=== PATIENT | male | born 1990 | race Caucasian/White ===

== ENCOUNTER 2017-09-13 20:05 | Inpatient (IN) | payer OTHER ==
[~2017-09-13] VITALS: Ht 182.9 cm; Wt 83.5 kg
[2017-09-13] MEDS ORDERED: ONDANSETRON 2MG/ML, 2ML IVPush ONE (20:30)
[2017-09-13] MEDS ORDERED: SODIUM CHLORIDE FLUSH 10ML SYR IVF ONE (20:30)
[2017-09-13] MEDS ORDERED: ONDANSETRON 2MG/ML, 2ML ONE (20:34)
[2017-09-13] MEDS ORDERED: MORPHINE SULFATE 4 MG/ML, 1ML ONE ×2 (20:35→21:16)
[2017-09-13 20:44] LABS: MEAN CORPUSCULAR HEMOGLOBIN 32.8 pg (27.5-34.5); MEAN CORPUSCULAR HGB CONC 34.5 g/dL (33.2-36.2); MEAN CORPUSCULAR VOLUME 95.1 fL (81-97); MEAN PLATELET VOLUME 9.1 fL (7.4-10.4); PLATELET COUNT 257 x10^3/uL (130-400); RED BLOOD COUNT 5.11 x10^6/uL (4.38-5.82); RED CELL DISTRIBUTION WIDTH 12.8 % (9.4-14.8)
[2017-09-13] MEDS: MORPHINE SULFATE 4 MG/ML, 1ML IVPush PRN ×2 (20:47→21:25)
[2017-09-13 20:52] LABS: ALBUMIN 4.3 g/dL (3.4-5.0); ANION GAP 6 mmol/L (5-15); CALCIUM 9.1 mg/dL (8.5-10.1); CHLORIDE 103 mmol/L (98-107); CREATININE 0.93 mg/dL (0.7-1.3)
[2017-09-13 21:03] LABS: BASOPHILS # (AUTO) 0.09 x10^3/uL (0-0.1); BASOPHILS % (AUTO) 1 % (0-1); EOSINOPHILS # (AUTO) 0.16 x10^3/uL (0-0.4); EOSINOPHILS % (AUTO) 1 % (1-7); LYMPHOCYTES % (AUTO) 16 % (22-44); MD SCAN; MONOCYTES % (AUTO) 5 % (2-9); NEUTROPHILS # (AUTO) 14.55 x10^3/uL (1.8-6.8); NEUTROPHILS % (AUTO) 77 % (42-75)
[2017-09-13] MEDS ORDERED: PANTOPRAZOLE 80 MG in SODIUM CHLORIDE 0.9% 50 ML IVPB ONE (21:09)
[2017-09-13] MEDS ORDERED: PANTOPRAZOLE 40 MG IV ONE (21:19)
[2017-09-13] MEDS ORDERED: OMNIPAQUE 350 MG/ML, 150 ML BOTTLE ONE (21:45)
[2017-09-13] MEDS ORDERED: HYDROmorphone 2 MG/ML, 1ML ONE (22:13)
[2017-09-13] MEDS ORDERED: OMNIPAQUE 350 MG/ML, 75ML BOTTLE ONE (22:16)
[2017-09-13] MEDS ORDERED: HYDROmorphone 2 MG/ML, 1ML IVPush ONE (22:30)
[2017-09-14] VITALS: BP 124/76
[2017-09-14] MEDS ORDERED: BISACODYL 10 MG SUPP PR PRN
[2017-09-14] MEDS ORDERED: PROMETHAZINE 25 MG/ML, 1ML IM PRN
[2017-09-14] MEDS ORDERED: ENALAPRILAT 1.25 MG/ML, 2ML IVPush PRN
[2017-09-14] MEDS ORDERED: hydrALAzine 20 MG/ML, 1ML IVPush PRN
[2017-09-14] MEDS ORDERED: LABETALOL 5MG/ML, 20ML IVPush PRN
[2017-09-14] MEDS: morphine SULFATE 10 MG/ML, 1ML IVPush PRN ×8 (00:35→22:37)
[2017-09-14] MEDS: ERTAPENEM 1 GM in SODIUM CHLORIDE 0.9% 50 ML IV SCH ×2 (00:37→01:39)
[2017-09-14 00:42] LABS: HEMOGLOBIN A1C 5.3 % (4.2-6.3)
[2017-09-14 00:45] LABS: FREE T4 (FREE THYROXINE) 0.98 ng/dL (0.76-1.46); THYROID STIMULATING HORMONE 1.48 mIU/L (0.358-3.740)
[2017-09-14] MEDS: D5%-0.9% NACL+KCL 20MEQ 1,000 ML IV SCH ×2 (01:39→09:05)
[2017-09-14 01:46] LABS: MEAN CORPUSCULAR HEMOGLOBIN 33.1 pg (27.5-34.5); MEAN CORPUSCULAR HGB CONC 35.2 g/dL (33.2-36.2); MEAN PLATELET VOLUME 9.1 fL (7.4-10.4); PLATELET COUNT 249 x10^3/uL (130-400); RED BLOOD COUNT 4.75 x10^6/uL (4.38-5.82); RED CELL DISTRIBUTION WIDTH 12.7 % (9.4-14.8)
[2017-09-14 01:54] LABS: ALANINE AMINOTRANSFERASE 28 U/L (12-78); ANION GAP 8 mmol/L (5-15); CALCIUM 8.7 mg/dL (8.5-10.1); CHLORIDE 105 mmol/L (98-107); CHOLESTEROL, TOTAL 195 mg/dL (140-239); CREATININE 0.78 mg/dL (0.7-1.3)
[2017-09-14 01:56] LABS: ALKALINE PHOSPHATASE 55 U/L (45-117); BILIRUBIN,TOTAL 1.9 mg/dL (0.2-1.0); CHOL/HDL RATIO 4.2; HDL CHOL % 24 % (26-37); HDL CHOLESTEROL (DIRECT) 46 mg/dL (40-60); LDL CHOLESTEROL,CALCULATED 133 mg/dL (54-169); LDL/HDL RATIO 2.9 (0.5-3.0); TOTAL PROTEIN 7.2 g/dL (6.4-8.2); TRIGLYCERIDES 82 mg/dL (50-200); VLDL CHOLESTEROL 16 mg/dL (0-25)
[2017-09-14] MEDS: PANTOPRAZOLE 80 MG in SODIUM CHLORIDE 0.9% 100 ML IV SCH ×3 (02:04→20:33)
[2017-09-14 02:40] LABS: BASOPHILS # (AUTO) 0.05 x10^3/uL (0-0.1); BASOPHILS % (AUTO) 0 % (0-1); EOSINOPHILS # (AUTO) 0.01 x10^3/uL (0-0.4); EOSINOPHILS % (AUTO) 0 % (1-7); LYMPHOCYTES # (AUTO) 1.53 x10^3/uL (1-3.4); LYMPHOCYTES % (AUTO) 7 % (22-44); MD SCAN; MONOCYTES # (AUTO) 1.13 x10^3/uL (0.2-0.8); MONOCYTES % (AUTO) 5 % (2-9); NEUTROPHILS # (AUTO) 18.37 x10^3/uL (1.8-6.8); NEUTROPHILS % (AUTO) 87 % (42-75)
[2017-09-14 05:11] VITALS: BP 111/64
[2017-09-14 05:49] LABS: MICROSCOPIC NOT IND
[2017-09-14 05:50] LABS: CULTURE INDICATED? NO
[2017-09-14 07:05] VITALS: BP 105/66
[2017-09-14] MEDS: ONDANSETRON 2MG/ML, 2ML IVPush PRN ×3 (08:28→20:33)
[2017-09-14 13:54] VITALS: BP 140/76
[2017-09-14 19:05] VITALS: BP 121/71
[2017-09-15] MEDS: ERTAPENEM 1 GM in SODIUM CHLORIDE 0.9% 50 ML IV SCH (01:11)
[2017-09-15] MEDS: morphine SULFATE 10 MG/ML, 1ML IVPush PRN ×6 (01:11→19:58)
[2017-09-15 02:22] VITALS: BP 122/76
[2017-09-15] MEDS: PANTOPRAZOLE 80 MG in SODIUM CHLORIDE 0.9% 100 ML IV SCH ×2 (06:23→17:36)
[2017-09-15 07:37] VITALS: BP 119/77
[2017-09-15] MEDS ORDERED: MORPHINE SULFATE 4 MG/ML, 1ML ONE ×3 (08:14→14:48)
[2017-09-15] MEDS: ONDANSETRON 2MG/ML, 2ML IVPush PRN (08:16)
[2017-09-15 08:23] LABS: ALANINE AMINOTRANSFERASE 20 U/L (12-78); ALBUMIN 3.7 g/dL (3.4-5.0); ANION GAP 8 mmol/L (5-15); CALCIUM 9.1 mg/dL (8.5-10.1); CHLORIDE 103 mmol/L (98-107); CREATININE 0.97 mg/dL (0.7-1.3)
[2017-09-15 08:25] LABS: ALKALINE PHOSPHATASE 50 U/L (45-117); BILIRUBIN,TOTAL 2.1 mg/dL (0.2-1.0); TOTAL PROTEIN 7.6 g/dL (6.4-8.2)
[2017-09-15 08:40] LABS: BASOPHILS # (AUTO) 0.23 x10^3/uL (0-0.1); BASOPHILS % (AUTO) 2 % (0-1); EOSINOPHILS # (AUTO) 0.24 x10^3/uL (0-0.4); EOSINOPHILS % (AUTO) 2 % (1-7); LYMPHOCYTES # (AUTO) 3.02 x10^3/uL (1-3.4); LYMPHOCYTES % (AUTO) 20 % (22-44); MD NO; MEAN CORPUSCULAR VOLUME 94.3 fL (81-97); MEAN PLATELET VOLUME 8.9 fL (7.4-10.4); MONOCYTES # (AUTO) 1.41 x10^3/uL (0.2-0.8); MONOCYTES % (AUTO) 9 % (2-9); NEUTROPHILS # (AUTO) 10.35 x10^3/uL (1.8-6.8); NEUTROPHILS % (AUTO) 68 % (42-75); PLATELET COUNT 226 x10^3/uL (130-400); RED BLOOD COUNT 4.82 x10^6/uL (4.38-5.82); RED CELL DISTRIBUTION WIDTH 12.6 % (9.4-14.8)
[2017-09-15 13:28] VITALS: BP 128/84
[2017-09-15] MEDS: HYDROcodone/APAP 7.5-325MG/15ML UDC PO PRN ×2 (17:36→21:56)
[2017-09-15 21:52] VITALS: BP 115/74
[2017-09-16] MEDS: ERTAPENEM 1 GM in SODIUM CHLORIDE 0.9% 50 ML IV SCH (01:31)
[2017-09-16] MEDS: morphine SULFATE 10 MG/ML, 1ML IVPush PRN ×2 (01:41→07:52)
[2017-09-16 02:16] VITALS: BP 124/76
[2017-09-16] MEDS: PANTOPRAZOLE 80 MG in SODIUM CHLORIDE 0.9% 100 ML IV SCH (04:29)
[2017-09-16] MEDS: HYDROcodone/APAP 7.5-325MG/15ML UDC PO PRN ×2 (04:34→11:23)
[2017-09-16 06:00] LABS: ANION GAP 9 mmol/L (5-15); CALCIUM 8.7 mg/dL (8.5-10.1); CHLORIDE 101 mmol/L (98-107)
[2017-09-16 06:02] LABS: CREATININE 0.94 mg/dL (0.7-1.3)
[2017-09-16 06:03] LABS: BASOPHILS # (AUTO) 0.11 x10^3/uL (0-0.1); BASOPHILS % (AUTO) 1 % (0-1); EOSINOPHILS # (AUTO) 0.63 x10^3/uL (0-0.4); EOSINOPHILS % (AUTO) 6 % (1-7); LYMPHOCYTES # (AUTO) 3.33 x10^3/uL (1-3.4); LYMPHOCYTES % (AUTO) 31 % (22-44); MD NO; MEAN CORPUSCULAR HEMOGLOBIN 32.9 pg (27.5-34.5); MEAN CORPUSCULAR HGB CONC 34.8 g/dL (33.2-36.2); MEAN CORPUSCULAR VOLUME 94.7 fL (81-97); MONOCYTES # (AUTO) 1.22 x10^3/uL (0.2-0.8); MONOCYTES % (AUTO) 11 % (2-9); NEUTROPHILS # (AUTO) 5.62 x10^3/uL (1.8-6.8); NEUTROPHILS % (AUTO) 52 % (42-75); PLATELET COUNT 226 x10^3/uL (130-400); RED BLOOD COUNT 4.53 x10^6/uL (4.38-5.82); RED CELL DISTRIBUTION WIDTH 12.7 % (9.4-14.8)
[2017-09-16 06:55] VITALS: BP 156/94
[2017-09-16 12:55] VITALS: BP 126/78
[2017-09-16] MEDS ORDERED: PANT40TA3 PO (13:20)
[2017-09-16] MEDS ORDERED: METR500T PO (13:20)
[2017-09-16] MEDS ORDERED: LEVO500T8 PO (13:20)
== END 2017-09-16 15:05 | disposition home or self-care (01) | DRG 155 ==
LOC: ED 22:42 → EDIP 22:43 → 4EST 09-14 00:09
PROVIDERS: ADMIT Internal Medicine; ATTEND Internal Medicine
PROC: BD11YZZ Fluoroscopy of Esophagus using Other Contrast (ICD-10-PCS; principal; 2017-09-13)
PROC: BD11YZZ Fluoroscopy of Esophagus using Other Contrast (ICD-10-PCS; 2017-09-15)
DX: S11.21XA Laceration without foreign body of pharynx and cervical esophagus, initial encounter (principal); J90 Pleural effusion, not elsewhere classified; R17 Unspecified jaundice; J94.2 Hemothorax; E87.6 Hypokalemia; F12.90 Cannabis use, unspecified, uncomplicated; F17.210 Nicotine dependence, cigarettes, uncomplicated; J45.909 Unspecified asthma, uncomplicated; M41.9 Scoliosis, unspecified; D72.829 Elevated white blood cell count, unspecified; X58.XXXA Exposure to other specified factors, initial encounter; Z82.49 Family history of ischemic heart disease and other diseases of the circulatory system; Z90.89 Acquired absence of other organs; Z88.1 Allergy status to other antibiotic agents; Z88.0 Allergy status to penicillin; Y93.89 Activity, other specified; Y92.89 Other specified places as the place of occurrence of the external cause; Y99.8 Other external cause status
CPT/HCPCS: 36415; 71045; 71046; 71260; 74220; 80048; 80053; 80061; 81003; 82040; 83036; 83690; 83735; 84100; 84439; 84443; 85025; 87040; 93005; 96374; 96375; 96376; J1170; J1335; J2405; Q9967; C9113; J2270; J3480